=== PATIENT | female | born 1950 | race Caucasian/White ===

== ENCOUNTER 2016-04-11 06:22 | Emergency (ER) | payer BC ==
[2016-04-11 06:36] VITALS: BP 132/83
--- NOTE | 2016-04-11 07:06 | EDM.PDOC ---
ED HPI ENT - General Chief Complaint: ENT Problem Stated Complaint: SORE THROAT/CHEST CONGESTION Time Seen by Provider: 04/11/16 06:50 Source of Information: Reports: Patient History Limitations: Reports: No limitations - History of Present Illness INITIAL COMMENTS - FREE TEXT/NARRATIVE: This patient is a 65 year old female that presents to the ER. Patient reports since yesterday she has had congestion, drainage, productive cough, sore throat left more than right, voice hoarseness. Patient denies abernathy, dizziness, n, v, d, f , cp, soa, abd pain, urinary/bowel changes, rash. Patient is conversing in full and complete sentences without difficulty. No trismus. Stable. Symptom Onset Date: 04/10/16 Timing/Duration: Reports: Day(s): (1) Severity: mild Location: Reports: left Ear, throat Improves with: Reports: None Worsens with: Reports: None Associated Symptoms: Reports: cough, sputum. Denies: confusion, headaches, seizure, shortness of breath, syncope, weakness, chest pain, fever/chills, diaphoresis, malaise, loss of appetite, nausea/vomiting, rash - Related Data Allergies/ADRs: Allergies Allergy/AdvReac Type Severity Reaction Status Date / Time Penicillins Allergy Hives Verified 04/11/16 06:30 pineapple Allergy Other Verified 04/11/16 06:30 strawberry Allergy Pain Verified 04/11/16 06:30 Home Meds: Home Meds Allopurinol [Zyloprim] 300 mg PO DAILY 01/03/14 [History] Aspirin [Halfprin] 81 mg PO DAILY 01/03/14 [History] Atenolol/Chlorthalidone [Tenoretic 50] 1 tab PO BID 01/03/14 [History] Carvedilol [Carvedilol] 6.25 mg PO BID 01/03/14 [History] Lisinopril 20 mg PO BID 01/03/14 [History] ALPRAZolam [Xanax] 0.25 mg PO BID PRN 04/11/16 [History] Pravastatin Sodium 80 mg PO DAILY 04/11/16 [History] Past Medical History Cardiovascular History: Reports: High cholesterol, Hypertension, [place] Oncologic (Cancer) History: Reports: Malignant melanoma Other Oncologic History: melanoma removal Dermatologic History: Reports: Melanoma - Past Surgical History Cardiovascular Surgical History: Reports: Coronary artery stent Dermatological Surgical History: Reports: Skin biopsy Social & Family History - Tobacco Use Smoking Status *Q: Former Smoker Years of Tobacco use: 40 Packs/Tins Daily: 2 Used Tobacco, but Quit: Yes Month Tobacco Last Used: 12/25 Second Hand Smoke Exposure: Yes - Alcohol Use Days Per Week of Alcohol Use: 0 - Recreational Drug Use Recreational Drug Use: No ED ROS ENT - Review of Systems Review Of Systems: See Below Constitutional: Reports: no symptoms HEENT: Reports: Ear pain (left ear pressure), Rhinitis, Sinus problem, Throat pain Respiratory: Reports: cough, sputum Cardiovascular: Reports: No symptoms Endocrine: Reports: no symptoms GI/Abdominal: Reports: No symptoms : Reports: no symptoms Musculoskeletal: Reports: no symptoms Skin: Reports: no symptoms Neurological: Reports: no symptoms Psychiatric: Reports: No symptoms Hematologic/Lymphatic: Reports: no symptoms Immunologic: Reports: no symptoms ED EXAM, ENT - Physical Exam Exam: See Below Exam Limited By: No limitations General Appearance: alert, WD/WN, no apparent distress Eye Exam: bilateral eye: normal inspection, PERRL Ears: normal external exam, normal canal, hearing grossly normal, normal TMs Nose: normal inspection, normal mucousa, no blood Mouth/Throat: Hoarse voice, Pharyngeal erythema (left more than right. ), Throat pain. No: Bleeding, Dental abcess, Dental pain, Dental tenderness, Dental trauma, Drooling, Dry mucous membrane, Gum swelling, Lip swelling, Lip ulcers, Muffled voice, Oral ulcers, Peritonsillar mass (no peritonsiilar mass seen on exam left or right. ), Teething, Throat swelling, Tongue swelling, Trismus, Uvular deviation, Uvular edema Head: atraumatic, normocephalic Neck: normal inspection, non-tender, lymphadenopathy (L) Respiratory/Chest: no respiratory distress, lungs clear, normal breath sounds, no accessory muscle use Cardiovascular: normal peripheral pulses, regular rate, rhythm, no edema, no gallop, no JVD, no murmur, no rub Back: normal inspection Extremities: normal inspection, normal range of motion, non-tender, no pedal edema, normal capillary refill Neurological: alert, oriented Psychiatric: normal affect, normal mood Skin: Warm, Dry, Intact, Normal color, No rash Lymphatic: adenopathy: (mild left anterior cervical) Course - Vital Signs Last Recorded V/S: Last Vital Signs Temp 98.0 F 04/11/16 06:34 Pulse 59 L 04/11/16 06:34 Resp 16 04/11/16 06:34 BP 132/83 04/11/16 06:34 Pulse Ox 93 L 04/11/16 06:34 - Re-Assessments/Exams Free Text/Narrative Re-Assessment/Exam: 04/11/16 07:14 At this time the patient does not have uvula deviation, left sided swelling more than right. No evidence of peritonsular abscess. She is educated when to return if these symptoms present. Departure - Departure Time of Disposition: 07:13 Disposition: Home, Self-Care 01 Condition: good Clinical Impression: Pharyngitis Qualifiers: Pharyngitis/tonsillitis etiology: unspecified etiology Qualified Code(s): J02.9 - Acute pharyngitis, unspecified Upper respiratory infection Qualifiers: URI type: unspecified viral URI Qualified Code(s): J06.9 - Acute upper respiratory infection, unspecified Referrals: Jeromy Hamilton MD [Primary Care Provider] - Forms: ED Department Discharge Additional Instructions: Followup with your primary care provider Return to the ER for worsening of condition or any emergent concerns such as increase in swelling sensation, airway closing, difficulty breathing. Maximo Lam as directed #6 no refill Tylenol or Motrin for fever - Assessment/Plan Plan: PLEASE SEE RN NOTE FOR PFSH.
== END 2016-04-11 07:25 | disposition home or self-care (01) ==
LOC: CC.ED 06:22
DX: J06.9 Acute upper respiratory infection, unspecified (principal); J02.9 Acute pharyngitis, unspecified; E78.00 Pure hypercholesterolemia, unspecified; I10 Essential (primary) hypertension; Z79.82 Long term (current) use of aspirin; Z79.899 Other long term (current) drug therapy; Z87.891 Personal history of nicotine dependence; Z88.0 Allergy status to penicillin; Z91.018 Allergy to other foods
CPT/HCPCS: 87430; 99283

== ENCOUNTER 2016-07-17 14:20 | Emergency (ER) | payer BC ==
--- NOTE | 2016-07-17 15:10 | EDM.PDOC ---
ED HPI GENERAL MEDICAL PROBLEM - General Chief Complaint: General Stated Complaint: SHORT OF BREATH Time Seen by Provider: 07/17/16 15:00 Source of Information: Reports: Patient, Family History Limitations: Reports: No Limitations - History of Present Illness Onset Date: 07/16/16 Onset Time: 23:00 Duration: Hour(s): (16 hours), Waxing/Waning Location: Reports: Abdomen Severity: Mild Improves with: Reports: Rest Worsens with: Reports: Other (Breakfast this am. Scrambled egg, toast and prakash made her feel worse) Context: Denies: Sick Contact, Trauma Associated Symptoms: Reports: Malaise, Nausea/Vomiting. 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 - Related Data Allergies Allergy/AdvReac Type Severity Reaction Status Date / Time Penicillins Allergy Hives Verified 07/17/16 14:33 pineapple Allergy Other Verified 07/17/16 14:33 strawberry Allergy Pain Verified 07/17/16 14:33 Home Meds: Home Meds Allopurinol [Zyloprim] 300 mg PO DAILY 01/03/14 [History] Carvedilol [Carvedilol] 25 mg PO BID 01/03/14 [History] Flecainide [Tambocor] 100 mg PO BID 07/17/16 [History] Rosuvastatin Calcium [Crestor] 40 mg PO DAILY 07/17/16 [History] Warfarin [Coumadin] 5 mg PO DAILY 07/17/16 [History] amLODIPine [Norvasc] 5 mg PO DAILY 07/17/16 [History] Past Medical History Cardiovascular History: Reports: High Cholesterol, Hypertension, [place], Pacemaker Respiratory History: Reports: None Gastrointestinal History: Reports: None Genitourinary History: Reports: None LMP (Approximate): Menopausal Musculoskeletal History: Reports: None Neurological History: Reports: None Psychiatric History: Reports: None Endocrine/Metabolic History: Reports: None Hematologic History: Reports: None Immunologic History: Reports: None Oncologic (Cancer) History: Reports: Malignant Melanoma, Other (See Below) ( [place] node BX Left Lower groin Leg-2011) Other Oncologic History: melanoma removal Dermatologic History: Reports: Melanoma - Infectious Disease History Infectious Disease History: Reports: None - Past Surgical History Cardiovascular Surgical History: Reports: Coronary Artery Stent Dermatological Surgical History: Reports: Skin Biopsy, Other (See Below) ( Malignant Melanoma sentinal node BX Left Lower Extremity.) Social & Family History - Family History Family Medical History: Noncontributory - Tobacco Use Smoking Status *Q: Former Smoker Years of Tobacco use: 40 Packs/Tins Daily: 2 Used Tobacco, but Quit: Yes Month Tobacco Last Used: 12/25 Second Hand Smoke Exposure: Yes - Caffeine Use Caffeine Use: Reports: None - Alcohol Use Days Per Week of Alcohol Use: 0 - Recreational Drug Use Recreational Drug Use: No - Living Situation & Occupation Living situation: Reports: , with Spouse Occupation: Unemployed ED ROS GENERAL - Review of Systems Review Of Systems: See Below Constitutional: Reports: Malaise, Weakness, Fatigue, Decreased Appetite. Denies : Weight Loss HEENT: Reports: No Symptoms Respiratory: Reports: Shortness of Breath. Denies: Wheezing, Pleuritic Chest Pain, Cough, Sputum Cardiovascular: Reports: Lightheadedness, Other (Recent Pacemaker placement July 05, 2016 for atrial fibrillation) Endocrine: Reports: No Symptoms GI/Abdominal: Reports: Nausea, Vomiting. Denies: Abdominal Pain, Constipation, Diarrhea, Hematemesis : Reports: No Symptoms Musculoskeletal: Reports: No Symptoms Skin: Reports: No Symptoms Neurological: Reports: No Symptoms Psychiatric: Reports: No Symptoms Hematologic/Lymphatic: Reports: No Symptoms Immunologic: Reports: No Symptoms ED EXAM, GENERAL - Physical Exam Exam: See Below Exam Limited By: No Limitations General Appearance: Alert, WD/WN, No Apparent Distress, Anxious Eye Exam: Bilateral Eye: EOMI, Normal Fundi, Normal Inspection, Nystagmus ( Negative), PERRL Ears: Normal External Exam, Normal Canal, Hearing Grossly Normal, Normal TMs Ear Exam: Bilateral Ear: Auricle Normal, Canal Normal, TM normal Nose: Normal Inspection, Normal Mucosa, No Blood Throat/Mouth: Normal Inspection, Normal Lips, Normal Teeth, Normal Gums, Normal Oropharynx, Normal Voice, No Airway Compromise Head: Atraumatic, Normocephalic Neck: Normal Inspection, Supple, Non-Tender, Full Range of Motion Respiratory/Chest: No Respiratory Distress, Lungs Clear, Normal Breath Sounds, No Accessory Muscle Use (Minimal tenderness at site of recent pacemaker no exudate, heat or redness-edges approximated) Cardiovascular: Normal Peripheral Pulses, Regular Rate, Rhythm, No Edema, No JVD , No Murmur, No Rub Peripheral Pulses: 2+: Radial (L), Radial (R), Femoral (L), Femoral (R), Popliteal (L), Popliteal (R), Dorsalis Pedis (L), Dorsalis Pedis (R) GI/Abdominal: Soft (Female) Exam: Deferred Rectal (Female) Exam: Deferred Back Exam: Normal Inspection, Full Range of Motion Extremities: Normal Inspection, Normal Range of Motion, Non-Tender, No Pedal Edema, Normal Capillary Refill, Pedal Edema (LLE secondary to Lymph node disection) Neurological: Alert, Oriented, CN II-XII Intact, Normal Cognition, Normal Gait, Normal Reflexes, No Motor/Sensory Deficits Psychiatric: Normal Affect, Normal Mood Skin Exam: Warm, Dry, Intact, Normal Color, No Rash Lymphatic: No Adenopathy Course - Vital Signs Last Recorded V/S: Last Vital Signs Temp 100.1 C H 07/17/16 14:20 Pulse 82 07/17/16 15:28 Resp 18 07/17/16 14:20 BP 180/93 H 07/17/16 15:28 Pulse Ox 96 07/17/16 15:28 - Orders/Labs/Meds Labs: Laboratory Tests 07/17/16 07/17/16 07/17/16 Range/Units 14:50 14:50 14:50 WBC 9.8 (5.0-10.0) 10^3/uL RBC 4.51 (4.00-5.50) 10^6/uL Hgb 13.3 (12.0-16.0) g/dL Hct 41.0 (37.0-47.0) % MCV 90.9 (82.0-94.0) fL MCH 29.5 (27.0-32.0) pg MCHC 32.4 L (33.0-38.0) g/dL RDW Coeff of Ozzie 14.5 (11.0-15.0) % Plt Count 150 (150-400) 10^3/uL Neut % (Auto) 78.7 (35-85) % Lymph % (Auto) 14.2 (10-55) % [place] % (Auto) 6.5 (0-16) % Eos % (Auto) 0.2 (0-5) % Baso % (Auto) 0.4 (0-3) % Neut # (Auto) 7.74 H (1.80-7.00) 10^3/uL Lymph # (Auto) 1.40 (1.00-4.80) 10^3/uL [place] # (Auto) 0.64 (0.00-0.80) 10^3/uL Eos # (Auto) 0.02 (0.00-0.45) 10^3/uL Baso # (Auto) 0.04 10^3/uL PT 26.8 H (9.7-12.3) SEC INR 2.41 H (0.92-1.18) Sodium 142 (136-145) mEq/L Potassium 4.4 (3.5-5.0) mEq/L Chloride 106 (98-106) mEq/L Carbon Dioxide 27 (21-32) mmol/L BUN 46 H (7-18) mg/dL Creatinine 1.4 H (0.6-1.0) mg/dL Est Cr Clr Drug Dosing TNP Estimated GFR (MDRD) 38 L (>=60) mL/min Glucose 116 H (75-99) mg/dL Calcium 8.6 (8.4-10.1) mg/dL Total Bilirubin 0.5 (0.0-1.0) mg/dL AST 19 (15-37) U/L ALT 40 (12-78) U/L Alkaline Phosphatase 58 (46-116) U/L C-Reactive Protein 0.7 (0.2-0.8) mg/dL Total Protein 6.4 (6.4-8.2) g/dL Albumin 3.3 L (3.4-5.0) g/dL Urine Color (YELLOW) Urine Appearance (CLEAR) Urine pH (4.5-8.0) Ur Specific [place] (1.003-1.020) Urine Protein (NEGATIVE) mg/dL Urine Glucose (UA) (NEGATIVE) mg/dL Urine Ketones (NEGATIVE) mg/dL Urine Occult Blood (NEGATIVE) Urine Nitrite (NEGATIVE) Urine Bilirubin (NEGATIVE) Urine Urobilinogen (0.2-1.0) EU/dL Ur Leukocyte Esterase (NEGATIVE) Urine RBC (0-5) /HPF Urine WBC (0-5) /HPF Ur Squamous Epith Cells (NOT SEEN) /HPF 06/04/17 Range/Units 15:04 WBC (5.0-10.0) 10^3/uL RBC (4.00-5.50) 10^6/uL Hgb (12.0-16.0) g/dL Hct (37.0-47.0) % MCV (82.0-94.0) fL MCH (27.0-32.0) pg MCHC (33.0-38.0) g/dL RDW Coeff of [place]zz[place] (11.0-15.0) % Plt Count (150-400) 10^3/uL Neut % (Auto) (35-85) % Lymph % (Auto) (10-55) % [place] % (Auto) (0-16) % Eos % (Auto) (0-5) % Baso % (Auto) (0-3) % Neut # (Auto) (1.80-7.00) 10^3/uL Lymph # (Auto) (1.00-4.80) 10^3/uL [place] # (Auto) (0.00-0.80) 10^3/uL Eos # (Auto) (0.00-0.45) 10^3/uL Baso # (Auto) 10^3/uL PT (9.7-12.3) SEC INR (0.92-1.18) Sodium (136-145) mEq/L Potassium (3.5-5.0) mEq/L Chloride (98-106) mEq/L Carbon Dioxide (21-32) mmol/L BUN (7-18) mg/dL Creatinine (0.6-1.0) mg/dL Est Cr Clr Drug Dosing Estimated GFR (MDRD) (>=60) mL/min Glucose (75-99) mg/dL Calcium (8.4-10.1) mg/dL Total Bilirubin (0.0-1.0) mg/dL AST (15-37) U/L ALT (12-78) U/L Alkaline Phosphatase (46-116) U/L C-Reactive Protein (0.2-0.8) mg/dL Total Protein (6.4-8.2) g/dL Albumin (3.4-5.0) g/dL Urine Color Light yellow (YELLOW) Urine Appearance Clear (CLEAR) Urine pH 6.0 (4.5-8.0) Ur Specific [place] 1.012 (1.003-1.020) Urine Protein Negative (NEGATIVE) mg/dL Urine Glucose (UA) Negative (NEGATIVE) mg/dL Urine Ketones Negative (NEGATIVE) mg/dL Urine Occult Blood Negative (NEGATIVE) Urine Nitrite Negative (NEGATIVE) Urine Bilirubin Negative (NEGATIVE) Urine Urobilinogen 0.2 (0.2-1.0) EU/dL Ur Leukocyte Esterase Small H (NEGATIVE) Urine RBC 0-5 (0-5) /HPF Urine WBC 5-10 H (0-5) /HPF Ur Squamous Epith Cells Few H (NOT SEEN) /HPF Meds: Medications Discontinued Medications Generic Name Dose Route Start Last Admin Trade Name Freq PRN Reason Stop Dose Admin Acetaminophen Confirm 07/17/16 15:36 Tylenol Extra Strength Administered 07/17/16 15:37 Dose 1,000 mg .ROUTE .STK-MED ONE Departure - Departure Time of Disposition: 16:07 Disposition: Home, Self-Care 01 Condition: good Clinical Impression: Atrial fibrillation, Pacemaker - Discharge Information Forms: ED Department Discharge Additional Instructions: Discussed all laboratory testing negative. Reassurance given. Advised continue medication per cardiology Tylenol prn discomfort. F/U PCP or Cardiology as indicated. Return to ER if chest pain, diaphoresis or other S/S worrisome to patient. - Problem List & Annotations (1) Atrial fibrillation SNOMED Code(s): 36345194 Code(s): I48.91 - UNSPECIFIED ATRIAL FIBRILLATION Status: Acute Current Visit: Yes (2) Pacemaker SNOMED Code(s): 547469273, 822863203 Code(s): Z95.0 - PRESENCE OF CARDIAC PACEMAKER Status: Acute Current Visit: Yes - Assessment/Plan Assessment:: Anxiety Pacemaker HTN History of Melanoma Plan: Discussed all laboratory testing negative. Reassurance given. Advised continue medication per cardiology Tylenol prn discomfort. F/U PCP or Cardiology as indicated. Return to ER if chest pain, diaphoresis or other S/S worrisome to patient.
[2016-07-17 15:14] LABS: CHLORIDE,CL 106 mEq/L (98-106); SODIUM,NA 142 mEq/L (136-145)
[2016-07-17 15:28] VITALS: BP 180/93
[2016-07-17] MEDS ORDERED: Acetaminophen 500 MG Tab ONE (15:36)
== END 2016-07-17 16:15 | disposition home or self-care (01) ==
LOC: CC.ED 14:20
DX: I48.91 Unspecified atrial fibrillation (principal); E78.00 Pure hypercholesterolemia, unspecified; I10 Essential (primary) hypertension; I25.2 Old myocardial infarction; Z87.891 Personal history of nicotine dependence; Z88.0 Allergy status to penicillin; Z91.018 Allergy to other foods; Z79.899 Other long term (current) drug therapy; Z95.0 Presence of cardiac pacemaker
CPT/HCPCS: 36415; 80053; 81001; 85025; 85610; 86140; 99283

== ENCOUNTER 2016-07-18 04:08 | Emergency (ER) | payer BC ==
[2016-07-18] MEDS ORDERED: Sodium Chloride 0.9% 1,000 ML ONE (04:34)
[2016-07-18] MEDS ORDERED: LORazepam 2 MG/ML Syringe IVPUSH PRN (04:37)
[2016-07-18] MEDS ORDERED: Ondansetron 4 MG/2 ML SDV IVPUSH PRN (04:40)
[2016-07-18] MEDS ORDERED: Pantoprazole 40 MG Vial IVPUSH SCH (04:45)
--- NOTE | 2016-07-18 04:47 | EDM.PDOC ---
[id number] Complaint: vomiting blood Time Seen by Provider: 07/18/16 04:20 Source of Information: Reports: Patient, EMS, Family History Limitations: Reports: No Limitations - History of Present Illness INITIAL COMMENTS - FREE TEXT/NARRATIVE: Patient awakened this am around 3:00 am with nausea. She states after about 45 mins. she noted some emesis with bright red blood. She affirms some anxiety and called ambulance to transfer to hospital. She denies abdominal pain affirms INR elevation with decreased Warfarin last week. PT INR yesterday therapeutic. She affirms recent pacemaker placement and nausea for the past 12 hours. She denies melena. Onset: Today Onset Date: 07/18/16 Onset Time: 03:30 Duration: Hour(s): (1), Waxing/Waning Severity: Mild Associated Symptoms: Reports: Nausea/Vomiting Middle Abdominal Pain Score (Numeric/FACES): 3 - Related Data Allergies Allergy/AdvReac Type Severity Reaction Status Date / Time Penicillins Allergy Hives Verified 07/18/16 04:14 pineapple Allergy Other Verified 07/18/16 04:14 strawberry Allergy Pain Verified 07/18/16 04:14 Home Meds: Home Meds Allopurinol [Zyloprim] 300 mg PO DAILY 01/03/14 [History] Carvedilol [Carvedilol] 25 mg PO BID 01/03/14 [History] Flecainide [Tambocor] 100 mg PO BID 07/17/16 [History] Rosuvastatin Calcium [Crestor] 40 mg PO DAILY 07/17/16 [History] Warfarin [Coumadin] 5 mg PO DAILY 07/17/16 [History] amLODIPine [Norvasc] 5 mg PO DAILY 07/17/16 [History] Past Medical History HEENT History: Reports: None Cardiovascular History: Reports: High Cholesterol, Hypertension, [place], Pacemaker Respiratory History: Reports: None Gastrointestinal History: Reports: None Genitourinary History: Reports: None Musculoskeletal History: Reports: None Neurological History: Reports: None Psychiatric History: Reports: None Endocrine/Metabolic History: Reports: None Hematologic History: Reports: None Immunologic History: Reports: None Oncologic (Cancer) History: Reports: Malignant Melanoma, Other (See Below) Other Oncologic History: melanoma removal Dermatologic History: Reports: Melanoma - Infectious Disease History Infectious Disease History: Reports: None - Past Surgical History Cardiovascular Surgical History: Reports: Coronary Artery Stent Dermatological Surgical History: Reports: Skin Biopsy, Other (See Below) Social & Family History - Family History Family Medical History: Noncontributory - Tobacco Use Smoking Status *Q: Former Smoker Years of Tobacco use: 40 Packs/Tins Daily: 2 Used Tobacco, but Quit: Yes Month Tobacco Last Used: 2011 Second Hand Smoke Exposure: Yes - Caffeine Use Caffeine Use: Reports: Coffee - Alcohol Use Days Per Week of Alcohol Use: 0 - Recreational Drug Use Recreational Drug Use: No - Living Situation & Occupation Living situation: Reports: , with Spouse Occupation: Unemployed ED ROS GENERAL - Review of Systems Review Of Systems: See Below Constitutional: Reports: No Symptoms HEENT: Reports: No Symptoms Respiratory: Reports: No Symptoms Cardiovascular: Reports: No Symptoms Endocrine: Reports: No Symptoms GI/Abdominal: Reports: Hematemesis, Nausea, Vomiting. Denies: Abdominal Pain, Melena : Reports: No Symptoms Musculoskeletal: Reports: No Symptoms Skin: Reports: No Symptoms Neurological: Reports: No Symptoms Psychiatric: Reports: Anxiety Hematologic/Lymphatic: Reports: Easy Bleeding Immunologic: Reports: No Symptoms ED EXAM, GI/ABD - Physical Exam Exam: See Below Exam Limited By: No Limitations General Appearance: Alert, WD/WN, No Apparent Distress, Anxious Eyes: Bilateral: Normal Appearance, EOMI Ears: Normal External Exam, Normal Canal, Hearing Grossly Normal Nose: Normal Inspection, Normal Mucosa Throat/Mouth: Normal Inspection, Normal Lips, Normal Teeth Head: Atraumatic, Normocephalic Neck: Normal Inspection, Supple, Non-Tender, Full Range of Motion Respiratory/Chest: No Respiratory Distress, Lungs Clear, Normal Breath Sounds, No Accessory Muscle Use, Chest Non-Tender Cardiovascular: Normal Peripheral Pulses, Regular Rate, Rhythm, No Edema, No JVD , No Murmur GI/Abdominal: Normal Bowel Sounds, Soft, Non-Tender, No Organomegaly, Other ( 200 cc gross bloody emesis) (Female) Exam: Deferred Rectal (Female) Exam: Deferred Back Exam: Normal Inspection Extremities: Normal Inspection, Normal Range of Motion, Non-Tender, No Pedal Edema, Normal Capillary Refill Neurological: Alert, Oriented, CN II-XII Intact, Normal Cognition, No Motor/ Sensory Deficits Psychiatric: Normal Affect, Normal Mood Skin Exam: Warm, Dry, Intact, Normal Color, No Rash Lymphatic: No Adenopathy EKG INTERPRETATION Rhythm: NSR [place]: normal P-wave: present QRS: normal ST-T: normal QT: normal Comparison: other: (Telemetry-Pacer) Course - Vital Signs Last Recorded V/S: Last Vital Signs Temp 37.6 C 07/18/16 06:14 Pulse 84 07/18/16 06:14 Resp 18 07/18/16 06:14 BP 158/72 H 07/18/16 06:14 Pulse Ox 94 L 07/18/16 05:38 - Orders/Labs/Meds Orders: Active Orders 24 hr Category Date Time Status LORazepam [Ativan] Med 07/18/16 04:37 Active 1 mg IVPUSH ASDIRECTED PRN Ondansetron [Zofran] Med 07/18/16 04:40 Active 4 mg IVPUSH Q6H PRN Pantoprazole [ProTONIX IV] Med 07/18/16 04:45 Active 40 mg IVPUSH Q24H Sodium Chloride 0.9% [Normal Saline] 1,000 ml Med 07/18/16 05:00 Active IV ASDIRECTED Sucralfate [Carafate] Med 07/18/16 07:00 Active 1 gm PO QIDACANDBED Transfuse Fresh Frozen Plasma [COMM] Stat Oth 07/18/16 05:08 Ordered Medication Orders Sodium Chloride (Normal Saline) 1,000 mls @ 100 mls/hr IV ASDIRECTED AMARILIS Last Admin: 07/18/16 04:54 Dose: 100 mls/hr Lorazepam (Ativan) 1 mg IVPUSH ASDIRECTED PRN PRN Reason: Anxiety Last Admin: 07/18/16 04:52 Dose: 1 mg Ondansetron HCl (Zofran) 4 mg IVPUSH Q6H PRN PRN Reason: Nausea Last Admin: 07/18/16 04:53 Dose: 4 mg Pantoprazole Sodium (Protonix Iv) 40 mg IVPUSH Q24H AMARILIS Last Admin: 07/18/16 05:06 Dose: 40 mg Sucralfate (Carafate) 1 gm PO QIDACANDBED AMARILIS Last Admin: 07/18/16 05:06 Dose: 1 gm Labs: Laboratory Tests 06/05/17 06/05/17 06/05/17 Range/Units 04:48 04:48 04:48 WBC 13.9 H (5.0-10.0) 10^3/uL RBC 3.88 L (4.00-5.50) 10^6/uL Hgb 11.5 L (12.0-16.0) g/dL Hct 35.2 L (37.0-47.0) % MCV 90.7 (82.0-94.0) fL MCH 29.6 (27.0-32.0) pg MCHC 32.7 L (33.0-38.0) g/dL RDW Coeff of Ozzie 14.4 (11.0-15.0) % Plt Count 189 (150-400) 10^3/uL Neut % (Auto) 82.0 (35-85) % Lymph % (Auto) 11.7 (10-55) % Esmeralda % (Auto) 5.5 (0-16) % Eos % (Auto) 0.4 (0-5) % Baso % (Auto) 0.4 (0-3) % Neut # (Auto) 11.43 H (1.80-7.00) 10^3/uL Lymph # (Auto) 1.63 (1.00-4.80) 10^3/uL Esmeralda # (Auto) 0.77 (0.00-0.80) 10^3/uL Eos # (Auto) 0.05 (0.00-0.45) 10^3/uL Baso # (Auto) 0.06 10^3/uL PT 25.4 H (9.7-12.3) SEC INR 2.29 H (0.92-1.18) Sodium 143 (136-145) mEq/L Potassium 4.0 (3.5-5.0) mEq/L Chloride 107 H (98-106) mEq/L Carbon Dioxide 27 (21-32) mmol/L BUN 62 H (7-18) mg/dL Creatinine 1.3 H (0.6-1.0) mg/dL Est Cr Clr Drug Dosing 46.29 mL/min Estimated GFR (MDRD) 41 L (>=60) mL/min Glucose 137 H (75-99) mg/dL Calcium 8.4 (8.4-10.1) mg/dL Total Bilirubin 0.3 (0.0-1.0) mg/dL AST 18 (15-37) U/L ALT 34 (12-78) U/L Alkaline Phosphatase 50 (46-116) U/L Total Protein 6.1 L (6.4-8.2) g/dL Albumin 3.2 L (3.4-5.0) g/dL Meds: Medications Generic Name Dose Route Start Last Admin Trade Name Freq PRN Reason Stop Dose Admin Sodium Chloride 1,000 mls @ 100 mls/hr 07/18/16 05:00 07/18/16 04:54 Normal Saline IV 100 mls/hr ASDIRECTED AMARILIS Administration Lorazepam 1 mg 07/18/16 04:37 07/18/16 04:52 Ativan IVPUSH 1 mg ASDIRECTED PRN Administration Anxiety Ondansetron HCl 4 mg 07/18/16 04:40 07/18/16 04:53 Zofran IVPUSH 4 mg Q6H PRN Administration Nausea Pantoprazole Sodium 40 mg 07/18/16 04:45 07/18/16 05:06 Protonix Iv IVPUSH 40 mg Q24H AMARILIS Administration Sucralfate 1 gm 07/18/16 07:00 07/18/16 05:06 Carafate PO 1 gm QIDACANDBED AMARILIS Administration Discontinued Medications Generic Name Dose Route Start Last Admin Trade Name Dorie PRN Reason Stop Dose Admin Hydromorphone HCl 2 mg 07/18/16 06:22 Dilaudid IVPUSH 07/18/16 06:23 ONETIME ONE Sodium Chloride Confirm 07/18/16 04:34 Normal Saline Administered 07/18/16 04:35 Dose 1,000 mls @ as directed .ROUTE .STK-MED ONE Phytonadione 5 mg/ Sodium 50.5 mls @ 100 mls/hr 07/18/16 05:08 07/18/16 05:27 Chloride IV 07/18/16 05:38 100 mls/hr NOW ONE Administration - Re-Assessments/Exams Free Text/Narrative Re-Assessment/Exam: 07/18/16 05:22 Patient resting comfortably after administration of Ativan 1 mg and Zofran 4 mg. IVF continues. Vitamin K 5 mg IV given and 1 unit FFP initiated. Calls placed for transfer. Awaiting transfer to [facility] Dr. Francis, patient stable. Departure - Departure Time of Disposition: 06:33 Disposition: DC/Tfer to Acute Hospital 02 Condition: fair Clinical Impression: Vomiting, GI bleed - Discharge Information Forms: ED Department Discharge MLP Sign Off - Signature Requirements MLP Sign Off: No ED Communication - Discussed Case With (2) Discussed Case With (2): Admitting Provider (Dr. Francis will recieve in [place]. Transfer ALS.) - Problem List & Annotations (1) GI bleed SNOMED Code(s): 86214081 Code(s): K92.2 - GASTROINTESTINAL HEMORRHAGE, UNSPECIFIED Status: Acute Current Visit: Yes Qualifiers: Qualified Code(s): K92.0 - Hematemesis - Problem List Review Problem List Initiated/Reviewed/Updated: Yes - My Orders Last 24 Hours: My Active Orders 07/18/16 04:37 LORazepam [Ativan] 1 mg IVPUSH ASDIRECTED PRN 07/18/16 04:40 Ondansetron [Zofran] 4 mg IVPUSH Q6H PRN 07/18/16 04:45 Pantoprazole [ProTONIX IV] 40 mg IVPUSH Q24H 07/18/16 05:00 Sodium Chloride 0.9% [Normal Saline] 1,000 ml IV ASDIRECTED 07/18/16 05:08 Transfuse Fresh Frozen Plasma [COMM] Stat 07/18/16 07:00 Sucralfate [Carafate] 1 gm PO QIDACANDBED Transfer to [place] Dr Francis ALS.. - Assessment/Plan Last 24 Hours: My Active Orders 07/18/16 04:37 LORazepam [Ativan] 1 mg IVPUSH ASDIRECTED PRN 07/18/16 04:40 Ondansetron [Zofran] 4 mg IVPUSH Q6H PRN 07/18/16 04:45 Pantoprazole [ProTONIX IV] 40 mg IVPUSH Q24H 07/18/16 05:00 Sodium Chloride 0.9% [Normal Saline] 1,000 ml IV ASDIRECTED 07/18/16 05:08 Transfuse Fresh Frozen Plasma [COMM] Stat 07/18/16 07:00 Sucralfate [Carafate] 1 gm PO QIDACANDBED Assessment:: Acute GI Bleed Atrial Fibrillation-on Warfarin History of Pacemaker placement 2 weeks ago. Plan: Transfer to [place] Dr. Francis-prior to transfer administer Vitamin K 5 mg IV Transfuse FFP-1 unit- Patient aware of risks and benefits of transfer these are discussed with the family and patient. Risk of transfer worsening of cndition, aircraft MVA crash or . Benefits of transfer specialty care and interventions not provided at this local facility. Risks of non transfer lack of specialized treatment and interventions. Worsening of condition and . Benefits of non transfer is staying in familiar environment and close to home. Patient and family verbalizes understanding and agreement to transfer.
[2016-07-18] MEDS ORDERED: Sodium Chloride 0.9% 1,000 ML IV SCH (05:00)
[2016-07-18] MEDS ORDERED: Phytonadione 5 MG in Sodium Chloride 0.9% 50 ML IV ONE (05:08)
[2016-07-18 06:15] VITALS: BP 158/72
[2016-07-18] MEDS ORDERED: HYDROmorphone 1 MG/ML Syringe IVPUSH ONE (06:22)
[2016-07-18] MEDS ORDERED: Sucralfate 1 GM Tab PO SCH (07:00)
== END 2016-07-18 06:45 ==
LOC: CC.ED 04:08
DX: K92.2 Gastrointestinal hemorrhage, unspecified (principal); E78.00 Pure hypercholesterolemia, unspecified; I10 Essential (primary) hypertension; I25.2 Old myocardial infarction; Z88.0 Allergy status to penicillin; Z91.018 Allergy to other foods; Z79.899 Other long term (current) drug therapy; Z79.01 Long term (current) use of anticoagulants; Z95.5 Presence of coronary angioplasty implant and graft; Z87.891 Personal history of nicotine dependence
CPT/HCPCS: 36415; 36430; 80053; 85025; 85610; 96361; 96374; 96375; 99285; A9270; C9113; J2060; J2405; J3430; J7030; J7050; P9017

== ENCOUNTER 2016-08-24 23:55 | Emergency (ER) | payer BC ==
[2016-08-25 00:33] LABS: CHLORIDE,CL 104 mEq/L (98-106); SODIUM,NA 142 mEq/L (136-145)
--- NOTE | 2016-08-25 00:49 | EDM.PDOC ---
ED HPI GENERAL MEDICAL PROBLEM - General Chief Complaint: Cardiovascular Problem Stated Complaint: C/O PALPITATIONS Time Seen by Provider: 08/25/16 00:00 Source of Information: Reports: Patient History Limitations: Reports: No Limitations - History of Present Illness INITIAL COMMENTS - FREE TEXT/NARRATIVE: Zehra is a 65 yo female who presents to the ER with complaints of palpitations. States she woke up from a nap and was getting up to go to bed with the palpitations started. States symptoms started 30 minutes prior to arrival. Admits it felt as if she was going into atrial fibrillation. States she had a pacemaker placed not to long ago. Had a check up just recently and everything was working well. She denies any other symptoms. States she feels a little short of breath, which may be secondary to anxiety from the palpitations. Denies any chest pain. No recent illnesses. No abdominal pain or urinary complaints. OTherwise is feeling well. Denies any weakness. No lightheadedness or increased dyspnea on exertion with ambulation. - Related Data Allergies Allergy/AdvReac Type Severity Reaction Status Date / Time Penicillins Allergy Hives Verified 08/25/16 00:28 pineapple Allergy Other Verified 07/18/16 04:14 strawberry Allergy Pain Verified 07/18/16 04:14 Home Meds: Home Meds Allopurinol [Zyloprim] 300 mg PO DAILY 01/03/14 [History] Carvedilol [Carvedilol] 25 mg PO BID 01/03/14 [History] Flecainide [Tambocor] 100 mg PO BID 07/17/16 [History] Rosuvastatin Calcium [Crestor] 40 mg PO DAILY 07/17/16 [History] Warfarin [Coumadin] 5 mg PO DAILY 07/17/16 [History] Past Medical History HEENT History: Reports: None Cardiovascular History: Reports: High Cholesterol, Hypertension, [place], Pacemaker Respiratory History: Reports: None Gastrointestinal History: Reports: None Genitourinary History: Reports: None Musculoskeletal History: Reports: None Neurological History: Reports: None Psychiatric History: Reports: None Endocrine/Metabolic History: Reports: None Hematologic History: Reports: None Immunologic History: Reports: None Oncologic (Cancer) History: Reports: Malignant Melanoma, Other (See Below) Other Oncologic History: melanoma removal Dermatologic History: Reports: Melanoma - Infectious Disease History Infectious Disease History: Reports: None - Past Surgical History Cardiovascular Surgical History: Reports: Coronary Artery Stent Dermatological Surgical History: Reports: Skin Biopsy, Other (See Below) Social & Family History - Family History Family Medical History: Noncontributory - Tobacco Use Smoking Status *Q: Former Smoker Years of Tobacco use: 40 Packs/Tins Daily: 2 Used Tobacco, but Quit: Yes Month Tobacco Last Used: 2011 Second Hand Smoke Exposure: Yes - Caffeine Use Caffeine Use: Reports: Coffee - Alcohol Use Days Per Week of Alcohol Use: 0 - Recreational Drug Use Recreational Drug Use: No - Living Situation & Occupation Living situation: Reports: , with Spouse Occupation: Unemployed ED ROS GENERAL - Review of Systems Review Of Systems: See Below Constitutional: Denies: Fever, Chills, Decreased Appetite HEENT: Reports: No Symptoms Respiratory: Reports: Shortness of Breath. Denies: Wheezing, Cough Cardiovascular: Reports: Palpitations. Denies: Chest Pain, Edema, Lightheadedness, Orthopnea, Syncope GI/Abdominal: Reports: No Symptoms. Denies: Constipation, Diarrhea, Decreased Appetite, Nausea, Vomiting : Reports: No Symptoms Musculoskeletal: Reports: No Symptoms. Denies: Neck Pain Skin: Reports: No Symptoms Neurological: Reports: No Symptoms. Denies: Dizziness, Weakness Psychiatric: Reports: No Symptoms ED EXAM, GENERAL - Physical Exam Exam: See Below Exam Limited By: No Limitations General Appearance: Alert, No Apparent Distress, Anxious Eye Exam: Bilateral Eye: Vision Changes Ears: Normal External Exam, Normal Canal, Hearing Grossly Normal, Normal TMs Nose: Normal Inspection, No Blood Throat/Mouth: Normal Inspection, Normal Lips, Normal Teeth, Normal Gums, Normal Oropharynx, Normal Voice, No Airway Compromise Head: Atraumatic, Normocephalic Neck: Normal Inspection, Supple, Non-Tender Respiratory/Chest: No Respiratory Distress, Lungs Clear, Normal Breath Sounds, No Accessory Muscle Use Cardiovascular: Normal Peripheral Pulses, Regular Rate, Rhythm, No Murmur GI/Abdominal: Normal Bowel Sounds, Soft, Non-Tender, No Organomegaly, No Distention, No Abnormal Bruit, No Mass Extremities: Normal Inspection Neurological: Alert, Oriented, Normal Cognition, No Motor/Sensory Deficits Psychiatric: Normal Affect, Normal Mood Skin Exam: Warm, Dry, Intact, Normal Color, No Rash EKG INTERPRETATION EKG Date: 08/25/16 Rhythm: NSR (paced rhythm) Rate (Beats/Min): 72 Course - Vital Signs Last Recorded V/S: Last Vital Signs Temp 98.3 F 08/25/16 00:19 Pulse 62 08/25/16 00:53 Resp 16 08/25/16 00:53 BP 153/81 H 08/25/16 00:53 Pulse Ox 98 08/25/16 00:53 - Orders/Labs/Meds Orders: Active Orders 24 hr Category Date Time Status EKG Documentation Completion [RC] URGENT Care 08/25/16 00:00 Active Labs: Laboratory Tests 08/25/16 08/25/16 08/25/16 Range/Units 00:01 00:01 00:01 WBC 9.1 (5.0-10.0) 10^3/uL RBC 4.33 (4.00-5.50) 10^6/uL Hgb 11.9 L (12.0-16.0) g/dL Hct 38.9 (37.0-47.0) % MCV 89.8 (82.0-94.0) fL MCH 27.5 (27.0-32.0) pg MCHC 30.6 L (33.0-38.0) g/dL RDW Coeff of Ozzie 15.2 H (11.0-15.0) % Plt Count 187 (150-400) 10^3/uL Neut % (Auto) 60.6 (35-85) % Lymph % (Auto) 28.6 (10-55) % [place] % (Auto) 10.1 (0-16) % Eos % (Auto) 0.1 (0-5) % Baso % (Auto) 0.6 (0-3) % Neut # (Auto) 5.49 (1.80-7.00) 10^3/uL Lymph # (Auto) 2.59 (1.00-4.80) 10^3/uL [place] # (Auto) 0.91 H (0.00-0.80) 10^3/uL Eos # (Auto) 0.01 (0.00-0.45) 10^3/uL Baso # (Auto) 0.05 10^3/uL PT 23.1 H (9.7-12.3) SEC INR 2.09 H (0.92-1.18) Sodium 142 (136-145) mEq/L Potassium 3.3 L (3.5-5.0) mEq/L Chloride 104 (98-106) mEq/L Carbon Dioxide 30 (21-32) mmol/L BUN 34 H (7-18) mg/dL Creatinine 1.7 H (0.6-1.0) mg/dL Est Cr Clr Drug Dosing 35.40 mL/min Estimated GFR (MDRD) 30 L (>=60) mL/min Glucose 122 H (75-99) mg/dL Calcium 9.0 (8.4-10.1) mg/dL Total Bilirubin 0.4 (0.0-1.0) mg/dL AST 21 (15-37) U/L ALT 40 (12-78) U/L Alkaline Phosphatase 74 (46-116) U/L Lactate Dehydrogenase 245 H (100-190) U/L Creatine Kinase 109 (21-215) U/L Troponin I < 0.017 (0.00-0.06) ng/mL Total Protein 7.0 (6.4-8.2) g/dL Albumin 3.8 (3.4-5.0) g/dL - Re-Assessments/Exams Free Text/Narrative Re-Assessment/Exam: Zehra has been asymptomatic in the ER. States symptoms have subsided. Feels her normal self. monitor and storage bin tender shows paced rhythm at 65bpm. Departure - Departure Time of Disposition: 00:48 Disposition: Home, Self-Care 01 Clinical Impression: Pacemaker, Palpitations Referrals: Jeromy Hamilton MD [Primary Care Provider] - Forms: ED Department Discharge Additional Instructions: 1) Follow up with Dr. Hamilton on Monday for recheck of palpitations, advise returning to ER sooner if any concerns or recurrent symptoms 2) Rest 3) Continue to take medications as directed. - Problem List & Annotations (1) Pacemaker SNOMED Code(s): 821739199, 672606958 Code(s): Z95.0 - PRESENCE OF CARDIAC PACEMAKER Status: Acute Current Visit: Yes (2) Palpitations SNOMED Code(s): 38998970, 158726328 Code(s): R00.2 - PALPITATIONS Status: Acute Current Visit: Yes - Problem List Review Problem List Initiated/Reviewed/Updated: Yes - My Orders Last 24 Hours: My Active Orders 08/25/16 00:00 EKG Documentation Completion [RC] URGENT - Assessment/Plan Last 24 Hours: My Active Orders 08/25/16 00:00 EKG Documentation Completion [RC] URGENT Plan: Laboratory work and EKG were stable. Will discharge home after talking to Zehra. Discussed staying on telemetry and extended ER, which Zehra declined and elected to go home. Will discharge at this time in satisfactory condition.
[2016-08-25 00:54] VITALS: BP 153/81
== END 2016-08-25 01:00 | disposition home or self-care (01) ==
LOC: CC.ED 23:55
DX: R00.2 Palpitations (principal); Z95.0 Presence of cardiac pacemaker; I10 Essential (primary) hypertension; I25.2 Old myocardial infarction; E78.00 Pure hypercholesterolemia, unspecified; Z85.820 Personal history of malignant melanoma of skin; Z95.5 Presence of coronary angioplasty implant and graft; Z87.891 Personal history of nicotine dependence; Z79.01 Long term (current) use of anticoagulants; Z79.899 Other long term (current) drug therapy; Z88.0 Allergy status to penicillin; Z91.018 Allergy to other foods
CPT/HCPCS: 36415; 80053; 82550; 83615; 84484; 85025; 85610; 93005; 99285

== ENCOUNTER 2023-08-05 18:45 | Emergency (ER) | payer MEDICARE, BC ==
[2023-08-05 19:03] VITALS: BP 158/71; PULSE 85
[2023-08-05] MEDS: Tetracaine HCl/PF 0.5% 4 ML Bottle EYELF ONE (19:34)
== END 2023-08-05 19:17 | disposition home or self-care (01) ==
LOC: CC.ED 18:45
DX: H43.392 Other vitreous opacities, left eye (principal); I10 Essential (primary) hypertension; I25.2 Old myocardial infarction; Z95.0 Presence of cardiac pacemaker; E78.00 Pure hypercholesterolemia, unspecified; Z88.0 Allergy status to penicillin; Z91.018 Allergy to other foods; Z79.899 Other long term (current) drug therapy; Z95.5 Presence of coronary angioplasty implant and graft
CPT/HCPCS: 99283